=== PATIENT | female | born 1955 | race Caucasian/White ===

== ENCOUNTER 2022-07-31 14:00 | Outpatient (RCR) | payer BC, SELFPAY | END 2022-07-31 14:05 | disposition home or self-care (01) | LOC: PT 14:00 | PROVIDERS: PCP Nurse Practitioner Obstetrics & Gynecology; Visit Provider Family Medicine Sports Medicine | DX: M17.0 Bilateral primary osteoarthritis of knee (principal); G89.29 Other chronic pain | CPT/HCPCS: 97110; 97112; 97163 ==